=== PATIENT | male | born 1995 | race Caucasian/White ===

== ENCOUNTER 2021-09-24 11:26 | Emergency (ER) | payer BC ==
[2021-09-24 12:16] LABS: HEMOGLOBIN 16.1 gm/dl (14.0-17.5); RED BLOOD COUNT 5.31 M/UL (4.20-5.50); WHITE BLOOD COUNT 11.5 K/UL (4.5-11.0)
[2021-09-24 12:51] LABS: BUN/CREATININE RATIO 23 (0-10)
== END 2021-09-24 14:05 | disposition home or self-care (01) ==
LOC: ER1 11:26
PROVIDERS: Nurse Practitioner
DX: R55 Syncope and collapse (principal); S00.83XA Contusion of other part of head, initial encounter; B34.9 Viral infection, unspecified; Z20.822 Contact with and (suspected) exposure to COVID-19; Z88.2 Allergy status to sulfonamides; X58.XXXA Exposure to other specified factors, initial encounter
CPT/HCPCS: 0240U; 70450; 71045; 72125; 80053; 82550; 82553; 84484; 85025; 93005; 99284